=== PATIENT | male | born 1955 | race Caucasian/White ===

== ENCOUNTER 2016-11-18 11:55 | Emergency (ER) | payer MEDICAID ==
[2016-11-18 12:01] VITALS: BP 118/81; BMI 19.0
--- NOTE | 2016-11-18 12:50 | DR.CP ---
HPI - Time Seen Time seen: 12:40 - PCP Primary Care Physician: AUNDREA DOS SANTOS - HPI Comment HPI Comment: HISTORY BELOW. - Complaint Chief Complaint Doctor Comments: CHEST PAIN LEFT CHEST TIMES 3 WEEKS. HIST LUNG CA, POST CHEMO AND RADIATION THERAPY. NO FEVER. COUGHING YELLOW SPUTUM. NO HEMOPTESIS. NO FEVER. Chief Complaint:: PT. C/O LEFT SIDED CHEST WALL PAIN X 3 WEEKS WHICH HAS BEEN CONSTANT IN NATURE. PT. STATES "IT IS SENSITIVE ON THAT SIDE." PT. HAS STAGE 4 LUNG CANCER (LEFT LUNG). - Reviewed Nurses Notes Review: Yes - Source History Provided: Patient - Mode of Arrival Mode of Arrival: Ambulatory - Timing Onset of Chief Complaint: 10/28/16 Came on: Gradually Pain: Present Now - Duration Duration: Constant Duration: Days - Location Chest Pain Radiation Location: None - Context Onset: At rest History of: Similar pain in the past, Other (LUNG CA/BONE MET IN RIBS) Prehospital Care: None - Quality Quality: Sharp - Severity Severity: Severe - Modifying Factors Worsens: Nothing Impoves: Nothing - Associated Signs and Symptoms Associated Signs and Symptoms: Shortness of Breath PMH - PMH Past Medical History: Yes Past Medical History Comment: LUNG CANCER Past Surgical History: No Surgical History: No History - Family History History of Family Medical Conditions: Yes Family Medical History: Cancer - Social History Does patient currently use any type of tobacco product: Yes Have you used tobacco products in the last 12 months: Yes Type of Tobacco Use: Cigarettes How many years tobacco product used: 40 Does any household member use tobacco: Yes Alcohol Use: Occasionally Lives With: Family Lives Where: Home - infectious screening In the last 2 months have you had wt loss of >10#?: NO Have you had fever, night sweats or hemotysis?: No Have you traveled outside the country in the last 6 months?: No Isolation: Standard ROS - Review of Systems Constitutional: Weakness, Fatigue. negative: Chills, Fever Eyes: No Symptoms Reported ENTM: No Symptoms Reported Respiratoy: Productive Cough, Non-Productive Cough, Short of Breath, Wheezing. negative: Hemoptysis Cardiovascular: Chest Pain. negative: Edema, Palpitations, Syncope Gastrointestinal/Abdominal: No Symptoms Reported. negative: Abdominal Pain, Diarrhea, Nausea, Vomiting Genitourinary: negative: Dysuria, Frequency, Hematuria Neurological: No Symptoms Reported, Weakness. negative: Headache, Dizziness Musculoskeletal: Muscle Pain Integumentary: No Symptoms Reported Hematologic/Lymphatic: No Symptoms Reported All Other Systems: Reviewed and Negative PE - Vitals Vitals: Temperature 97.6 F Pulse Rate 107 Respiratory Rate 18 Blood Pressure 118/81 O2 Sat by Pulse Oximetry 96 - General Limitations: No Limitations General Appearance: Alert - Head Head Exam: Normal Inspection - Eyes Eye exam: Normal Appearance, PERRL, EOMI. negative: Scleral Icterus, Conjunctival Injection - ENT ENT Exam: Normal External Ear Exam - Respiratory Respiratory Exam: Normal Lung Sounds Bilat Respiratory Exam: Bilateral Wheezing, Bilateral Rales, Bilateral Rhonchi, Upper Wheezing, Lower Wheezing, Lower Rales, Lower Rhonchi - Cardiovascular Cardiovascular Exam: Regular Rate, Normal Rhythm, Normal Heart Sounds Pulse: Normal, Radial, Femoral Edema: Normal - Abdominal Exam Abdominal Exam: Normal Bowel Sounds, Soft. negative: Distention, Tenderness - Extremities Extremities Exam: Normal Inspection - Back Back Exam: Normal Inspection - Neurologic Neurological Exam: Alert, Oriented X3 - Psychiatric Psychiatric Exam: Normal Affect, Normal Mood - Skin Skin Exam: Normal Color MDM - Differential Diagnosis Differential Diagnosis: Chest Wall Pain, CHF, Costochondritis, Myocardial Infarction, Pericarditis, Pleuritis, Pancreatitis, Pneumonia, Pneumothorax ( LUNG CA/BONE METS) Course - Treatment Treatment: SEE ORDERS. - Education/Counseling Education/Counseling: Patient, Education Educated On: Diagnosis, Needs for Follow Up ROR - Labs Reviewed Laboratory Results Reviewed?: Yes Result Diagrams: 11/18/16 13:05 11/18/16 13:05 Laboratory: WBC 8.5 X10^3/uL (3.6-10.0) 11/18/16 13:05 RBC 2.44 X10^6/uL (4.7-6.0) L 11/18/16 13:05 Hgb 9.3 g/dL (13.5-18.0) L 11/18/16 13:05 Hct 26.1 % (42.0-54.0) L 11/18/16 13:05 MCV 107.1 fL (80.0-100.0) H 11/18/16 13:05 MCH 37.9 pg (27.0-34.0) H 11/18/16 13:05 MCHC 35.4 g/dL (33.0-35.0) H 11/18/16 13:05 RDW 16.3 % (11.6-16.5) 11/18/16 13:05 Plt Count 317 X10^3/uL (150.0-450.0) 11/18/16 13:05 Plt Count Comment Adequate (ADEQUATE) 11/18/16 13:05 MPV 7.7 fL (7.4-11.0) 11/18/16 13:05 Neut % 66.1 % (42.0-75.0) 11/18/16 13:05 Lymph % 15.0 % (21.0-51.0) L 11/18/16 13:05 [place] % 16.6 % (0.0-13.0) H 11/18/16 13:05 Eos % 1.8 % (0.9-2.9) 11/18/16 13:05 Baso % 0.5 % (0.2-1.0) 11/18/16 13:05 Neut # 5.6 x10^3/uL (2.2-4.8) H 11/18/16 13:05 Lymph # 1.3 X10^3/uL (1.3-2.9) 11/18/16 13:05 [place] # 1.4 x10^3/uL (0.3-0.8) H 11/18/16 13:05 Eos # 0.2 x10^3/uL (0.0-0.2) 11/18/16 13:05 Baso # 0.0 X10^3/uL (0.0-0.1) 11/18/16 13:05 Absolute Nucleated RBC 0.0 /100WBC 11/18/16 13:05 Plt Morphology Comment Normal (NORMAL) 11/18/16 13:05 RBC Morphology Abnormal (NORMAL) 11/18/16 13:05 Macrocytosis 1+ A 11/18/16 13:05 Sodium 140 mmol/L (136-145) 11/18/16 13:05 Corrected Sodium TNP 11/18/16 13:05 Potassium 3.9 mmol/L (3.5-5.1) 11/18/16 13:05 Chloride 103 mmol/L (98-107) 11/18/16 13:05 Carbon Dioxide 29.5 mmol/L (21-32) 11/18/16 13:05 BUN 11 mg/dL (7-18) 11/18/16 13:05 Creatinine 0.57 mg/dL (0.70-1.30) L 11/18/16 13:05 Est GFR (MDRD) Af Amer > 60 (>60) 11/18/16 13:05 Est GFR (MDRD) Non-Af > 60 (>60) 11/18/16 13:05 Glucose 110 mg/dL (65-99) H 11/18/16 13:05 Calcium 9.5 mg/dL (8.5-10.1) 11/18/16 13:05 Corrected Calcium 10.5 mg/dL (8.5-10.1) H 11/18/16 13:05 Total Bilirubin 0.20 mg/dL (0.2-1.0) 11/18/16 13:05 AST 11 Units/L (15-37) L 11/18/16 13:05 ALT 14 Units/L (12-78) 11/18/16 13:05 Alkaline Phosphatase 67 Units/L (46-116) 11/18/16 13:05 Creatine Kinase 18 Units/L (39-308) L 11/18/16 13:05 CK-MB (CK-2) < 1.0 ng/mL (0-4.0) 11/18/16 13:05 CK/CKMB % Calc 5.6 % (<4) 11/18/16 13:05 Troponin I < 0.02 ng/mL (0-1.5) 11/18/16 13:05 Total Protein 7.4 g/dL (6.4-8.2) 11/18/16 13:05 Albumin 2.8 g/dL (3.4-5.0) L 11/18/16 13:05 Globulin 4.6 g/dL (2.5-4.5) H 11/18/16 13:05 Albumin/Globulin Ratio 0.6 Ratio (1.1-2.1) L 11/18/16 13:05 - XRAY XRAY Interpreted by: Radiologist XRAY Findings: REPORT DISCUSS WITH PATIENT AND . - EKG Rhythm: NSR (EKG NOTED) - Diagnosis Discharge Problem: Bone metastases Lung cancer Qualifiers: Laterality: left Lung location: upper lobe of lung Qualified Code(s): C34.12 - Malignant neoplasm of upper lobe, left bronchus or lung Chest pain Qualifiers: Chest pain type: intercostal pain Qualified Code(s): R07.82 - Intercostal pain COPD (chronic obstructive pulmonary disease) Qualifiers: COPD type: emphysema Emphysema type: panlobular Qualified Code(s): J43.1 - Panlobular emphysema - Discharge Plan Disposition: 01 HOME, SELF-CARE Condition: Stable Prescriptions: Hydrocodone-Acetaminophen [Lortab 7.5-325 mg] 1 tab PO Q6H PRN #24 tab PRN Reason: - Follow ups/Referrals Follow ups/Referrals: SHAE JOSUE [Primary Care Provider] - 11/19/16 - Instructions Instructions: Bone Metastasis, Lung Cancer, Chest Wall Pain, Deup-ap-Onyx Additional Instructions: RETURN TO ED IF WORSE. SEE YOUR ONCHOLOGIST IN AM.
[2016-11-18 13:20] LABS: BASOPHILS % (AUTO) 0.5 % (0.2-1.0); EOSINOPHILS # (AUTO) 0.2 x10^3/uL (0.0-0.2); EOSINOPHILS % (AUTO) 1.8 % (0.9-2.9); HEMATOCRIT 26.1 % (42.0-54.0); HEMOGLOBIN 9.3 g/dL (13.5-18.0); LYMPHOCYTES # (AUTO) 1.3 X10^3/uL (1.3-2.9); MEAN CORPUSCULAR HEMOGLOBIN 37.9 pg (27.0-34.0); MEAN CORPUSCULAR HGB CONC 35.4 g/dL (33.0-35.0); MEAN CORPUSCULAR VOLUME 107.1 fL (80.0-100.0); MEAN PLATELET VOLUME 7.7 fL (7.4-11.0); MONOCYTES # (AUTO) 1.4 x10^3/uL (0.3-0.8); MONOCYTES % (AUTO) 16.6 % (0.0-13.0); NEUTROPHILS # (AUTO) 5.6 x10^3/uL (2.2-4.8); NEUTROPHILS % (AUTO) 66.1 % (42.0-75.0); PLATELET COUNT 317 X10^3/uL (150.0-450.0); RED BLOOD COUNT 2.44 X10^6/uL (4.7-6.0); RED CELL DISTRIBUTION WIDTH 16.3 % (11.6-16.5); WHITE BLOOD COUNT 8.5 X10^3/uL (3.6-10.0)
--- NOTE | 2016-11-18 13:24 | CT ---
History: Left chest wall pain and history of stage IV lung cancer Study: Multi account planner CT thorax without contrast. Comparison: Report only of outside CT chest with contrast dated August 31, 2016 Findings: There is a large necrotic left upper lobe lung mass measuring over [address] and over 15 centimeters sagittal length. There is central necrosis and irregular cavity formatio n. There is hyperinflation with centrilobular emphysema. There is no significant pleural effusion. T here is reticular fibrosis peripherally in the lower lobes. The left upper lobe mass is contiguous w ith the left superior hilum. There is no obvious mediastinal adenopathy. There is no pericardial eff usion. The partially visualized upper abdomen is unremarkable. There is lytic disc in the left 6th l ateral rib. Impression: 1. Large left upper lobe necrotic neoplastic lung mass increased in size up to 15 centimeters with a ssociated lytic destruction of the left 6th lateral rib. 2. Emphysema Reported By:
[2016-11-18 13:34] LABS: BLOOD UREA NITROGEN 11 mg/dL (7-18); CALCIUM 9.5 mg/dL (8.5-10.1); CARBON DIOXIDE 29.5 mmol/L (21-32); CHLORIDE 103 mmol/L (98-107); CREATININE 0.57 mg/dL (0.70-1.30); GLUCOSE 110 mg/dL (65-99); SODIUM 140 mmol/L (136-145); TROPONIN I < 0.02 ng/mL (0-1.5); eGFR BLACK RACES > 60 (>60); eGFR NON BLACK RACES > 60 (>60)
[2016-11-18 13:38] LABS: ALANINE AMINOTRANSFERASE 14 Units/L (12-78); ALBUMIN 2.8 g/dL (3.4-5.0); ALKALINE PHOSPHATASE 67 Units/L (46-116); ASPARTATE AMINO TRANSFERASE 11 Units/L (15-37); CKMB % 5.6 % (<4); COR CA(FOR HYPOALB) 10.5 mg/dL (8.5-10.1); CREATINE KINASE 18 Units/L (39-308); CREATINE KINASE MB < 1.0 ng/mL (0-4.0); TOTAL PROTEIN 7.4 g/dL (6.4-8.2)
[2016-11-18 13:45] LABS: PLATELET MORPHOLOGY COMMENT NORMAL (NORMAL)
== END 2016-11-18 14:28 | disposition home or self-care (01) ==
LOC: ER 12:06
DX: C79.51 Secondary malignant neoplasm of bone (principal); C34.12 Malignant neoplasm of upper lobe, left bronchus or lung; J43.1 Panlobular emphysema; R07.82 Intercostal pain; Z72.0 Tobacco use
CPT/HCPCS: 36415; 71250; 80053; 82550; 82553; 84484; 85025; 93005; 93010; 99282; 99283